=== PATIENT | female | born 1990 | race Caucasian/White ===

== ENCOUNTER 2021-07-10 07:27 | Emergency (ER) | payer SELFPAY ==
[2021-07-10] MEDS ORDERED: AMOXICILLIN875 MG PO (08:32)
[2021-07-10] MEDS ORDERED: Motrin,Rufen800 MG PO (08:32)
== END 2021-07-10 08:39 | disposition home or self-care (01) ==
LOC: ED 07:27
DX: K08.89 Other specified disorders of teeth and supporting structures (principal)